=== PATIENT | female | born 1990 | race Caucasian/White ===

== ENCOUNTER 2017-09-23 07:52 | Emergency (ER) | payer OTHER ==
--- NOTE | 2017-09-23 08:00 | EDM.PDOC ---
ED HPI GENERAL MEDICAL PROBLEM - General Chief Complaint: Upper Extremity Injury/Pain Stated Complaint: ARMS ARE BOTH SORE Time Seen by Provider: 09/23/17 07:59 Source of Information: Reports: Patient History Limitations: Reports: No Limitations - History of Present Illness INITIAL COMMENTS - FREE TEXT/NARRATIVE: HISTORY AND PHYSICAL: History of present illness: 27-year-old female presenting emergency department with chief complaint of generalized upper arm and wrist joint pain starting last evening. Patient states that last evening her arms, wrists, and fingers seem to become somewhat painful. Last night she believes that she had a faculty raising her arms above her head. This never happened before . She describes joint pain is achy. She does use her arms extensively at work at [employer]. The entire week she has felt sick in states that she did not take her temperature but she has been feeling warm and cold. She is also had a nonproductive cough and today had some nausea. She also reports a couple days of loose stools. She reports that her mother has a history of arthritis but she does not know if it's ostial or rheumatoid arthritis. She does not see a regular primary care provider here in [place]. She currently denies any chest pain, palpitations, shortness breath , syncopal episodes, focal neurologic deficits. She denies any visual changes and her main symptoms are limited to her upper extremities. Review of systems: As per history of present illness and below otherwise all systems reviewed and negative. Past medical history: As per history of present illness and as reviewed below otherwise noncontributory. Surgical history: As per history of present illness and as reviewed below otherwise noncontributory. Social history: No reported history of drug or alcohol abuse. Family history: As per history of present illness and as reviewed below otherwise noncontributory. Physical exam: HEENT: Atraumatic, normocephalic, pupils reactive, negative for conjunctival pallor or scleral icterus, mucous membranes moist, throat clear, neck supple, nontender, trachea midline. Lungs: Clear to auscultation, breath sounds equal bilaterally, chest nontender. Heart: S1S2, regular, negative for clicks, rubs, or JVD. Abdomen: Soft, nondistended, nontender. Negative for masses or hepatosplenomegaly. Negative for costovertebral tenderness. Pelvis: Stable nontender. Genitourinary: Deferred. Rectal: Deferred. Extremities: Atraumatic, negative for cords or calf pain. Neurovascular unremarkable. Neuro: Awake, alert, oriented. Cranial nerves II through XII unremarkable. Cerebellum unremarkable. Motor and sensory unremarkable throughout. Exam nonfocal. Diagnostics: CBC, CMP, chest x-ray, UA, influenza Therapeutics: Zofran 4 mg by mouth 1 Impression: Viral upper respiratory tract infection Plan: CBC, CMP, chest x-ray, UA, influenza were all unremarkable. Patient's symptoms are most likely related to a viral upper respiratory tract type infection. This was communicated to the patient. She is instructed to use Tylenol for fevers as well as Motrin. I also gave the patient a prescription for meloxicam to use for her joint pain. I think that this may be related to her viral illness however she does have a family history of arthritis and instructed her to follow-up with a primary care provider for further investigation. She should return to emergency department if she has any new or worsening symptoms. Bilateral Arms Pain Score (Numeric/FACES): 4 - Related Data Allergies Allergy/AdvReac Type Severity Reaction Status Date / Time No Known Allergies Allergy Verified 09/23/17 08:17 Home Meds: Home Meds . [No Known Home Meds] 09/23/17 [History] Review of Systems - Review of Systems Review Of Systems: ROS reveals no pertinent complaints other than HPI. ED EXAM, GENERAL - Physical Exam Exam: See Below Course - Vital Signs Last Recorded V/S: Last Vital Signs Temp 97.7 F 09/23/17 08:17 Pulse 94 09/23/17 08:17 Resp 18 09/23/17 08:17 BP 127/77 09/23/17 08:17 Pulse Ox 100 09/23/17 08:17 - Orders/Labs/Meds Orders: Active Orders 24 hr Category Date Time Status Chest 2V [CR] Stat Exams 09/23/17 08:39 Taken CULTURE URINE [RM] Stat Lab 09/23/17 09:11 Ordered HCG QUALITATIVE,URINE [URCHEM] Stat Lab 09/23/17 09:11 Ordered INFLUENZA A+B AG SCREEN [RM] Stat Lab 09/23/17 09:11 Ordered UA W/MICROSCOPIC [URIN] Stat Lab 09/23/17 09:11 Ordered Labs: Laboratory Tests 06/17/18 06/17/18 06/17/18 Range/Units 08:48 08:48 09:11 WBC 5.76 (4.0-11.0) K/uL RBC 4.40 (4.30-5.90) M/uL Hgb 13.2 (12.0-16.0) g/dL Hct 37.7 (36.0-46.0) % MCV 85.7 (80.0-98.0) fL MCH 30.0 (27.0-32.0) pg MCHC 35.0 (31.0-37.0) g/dL RDW Std Deviation 39.3 (28.0-62.0) fl RDW Coeff of Bev 12 (11.0-15.0) % Plt Count 148 L (150-400) K/uL MPV 9.00 (7.40-12.00) fL Neut % (Auto) 61.2 (48.0-80.0) % Lymph % (Auto) 27.4 (16.0-40.0) % [place] % (Auto) 7.6 (0.0-15.0) % Eos % (Auto) 2.1 (0.0-7.0) % Baso % (Auto) 1.7 H (0.0-1.5) % Neut # (Auto) 3.5 (1.4-5.7) K/uL Lymph # (Auto) 1.6 (0.6-2.4) K/uL [place] # (Auto) 0.4 (0.0-0.8) K/uL Eos # (Auto) 0.1 (0.0-0.7) K/uL Baso # (Auto) 0.1 (0.0-0.1) K/uL Nucleated RBC % 0.0 /100WBC Nucleated RBCs # 0 K/uL Sodium 140 (136-145) mmol/L Potassium 3.2 L (3.5-5.1) mmol/L Chloride 103 (98-107) mmol/L Carbon Dioxide 27.1 (21.0-32.0) mmol/L BUN 10 (7.0-18.0) mg/dL Creatinine 0.8 (0.6-1.0) mg/dL Est Cr Clr Drug Dosing 100.63 mL/min Estimated GFR (MDRD) > 60.0 ml/min Glucose 111 H (74-106) mg/dL Calcium 8.8 (8.5-10.1) mg/dL Total Bilirubin 0.5 (0.2-1.0) mg/dL AST 17 (15-37) IU/L ALT 27 (14-63) IU/L Alkaline Phosphatase 73 (46-116) U/L Total Protein 7.5 (6.4-8.2) g/dL Albumin 3.7 (3.4-5.0) g/dL Globulin 3.8 H (2.0-3.5) g/dL Albumin/Globulin Ratio 1.0 L (1.3-2.8) Urine Color Urine Appearance Urine pH (5.0-8.0) Ur Specific [place] (1.001-1.035) Urine Protein (NEGATIVE) mg/dL Urine Glucose (UA) (NEGATIVE) mg/dL Urine Ketones (NEGATIVE) mg/dL Urine Occult Blood (NEGATIVE) Urine Nitrite (NEGATIVE) Urine Bilirubin (NEGATIVE) Urine Ictotest Urine Urobilinogen (<2.0) EU/dL Ur Leukocyte Esterase (NEGATIVE) Urine RBC (0-2/HPF) Urine WBC (0-5/HPF) Ur Epithelial Cells (NONE-FEW) Urine Bacteria (NEGATIVE) Urine Mucus (NONE-MOD) Urine HCG, Qual NEGATIVE (NEGATIVE) 09/23/17 Range/Units 09:11 WBC (4.0-11.0) K/uL RBC (4.30-5.90) M/uL Hgb (12.0-16.0) g/dL Hct (36.0-46.0) % MCV (80.0-98.0) fL MCH (27.0-32.0) pg MCHC (31.0-37.0) g/dL RDW Std Deviation (28.0-62.0) fl RDW Coeff of Bev (11.0-15.0) % Plt Count (150-400) K/uL MPV (7.40-12.00) fL Neut % (Auto) (48.0-80.0) % Lymph % (Auto) (16.0-40.0) % [place] % (Auto) (0.0-15.0) % Eos % (Auto) (0.0-7.0) % Baso % (Auto) (0.0-1.5) % Neut # (Auto) (1.4-5.7) K/uL Lymph # (Auto) (0.6-2.4) K/uL [place] # (Auto) (0.0-0.8) K/uL Eos # (Auto) (0.0-0.7) K/uL Baso # (Auto) (0.0-0.1) K/uL Nucleated RBC % /100WBC Nucleated RBCs # K/uL Sodium (136-145) mmol/L Potassium (3.5-5.1) mmol/L Chloride (98-107) mmol/L Carbon Dioxide (21.0-32.0) mmol/L BUN (7.0-18.0) mg/dL Creatinine (0.6-1.0) mg/dL Est Cr Clr Drug Dosing mL/min Estimated GFR (MDRD) ml/min Glucose (74-106) mg/dL Calcium (8.5-10.1) mg/dL Total Bilirubin (0.2-1.0) mg/dL AST (15-37) IU/L ALT (14-63) IU/L Alkaline Phosphatase (46-116) U/L Total Protein (6.4-8.2) g/dL Albumin (3.4-5.0) g/dL Globulin (2.0-3.5) g/dL Albumin/Globulin Ratio (1.3-2.8) Urine Color YELLOW Urine Appearance CLEAR Urine pH 6.0 (5.0-8.0) Ur Specific [place] 1.025 (1.001-1.035) Urine Protein TRACE (NEGATIVE) mg/dL Urine Glucose (UA) NEGATIVE (NEGATIVE) mg/dL Urine Ketones 15 H (NEGATIVE) mg/dL Urine Occult Blood TRACE-LYSED (NEGATIVE) Urine Nitrite NEGATIVE (NEGATIVE) Urine Bilirubin SMALL H (NEGATIVE) Urine Ictotest NEGATIVE Urine Urobilinogen 1.0 (<2.0) EU/dL Ur Leukocyte Esterase NEGATIVE (NEGATIVE) Urine RBC 0-2 (0-2/HPF) Urine WBC 1-2 (0-5/HPF) Ur Epithelial Cells FEW (NONE-FEW) Urine Bacteria FEW (NEGATIVE) Urine Mucus MODERATE (NONE-MOD) Urine HCG, Qual (NEGATIVE) Meds: Medications Discontinued Medications Generic Name Dose Route Start Last Admin Trade Name Freq PRN Reason Stop Dose Admin Ondansetron HCl 4 mg 09/23/17 09:16 18 09:18 Zofran Odt PO 09/23/17 09:17 4 mg ONETIME ONE Administration Ondansetron HCl Confirm 09/23/17 09:16 09/23/18 09:18 Zofran Odt Administered 09/23/17 09:17 Not Given Dose 4 mg .ROUTE .STK-MED ONE Departure - Departure Time of Disposition: 10:16 Disposition: Home, Self-Care 01 Condition: Good Clinical Impression: Viral upper respiratory tract infection with cough - Discharge Information Referrals: PCP,None [Primary Care Provider] - Forms: ED Department Discharge Additional Instructions: My general discharge The following information is given to patients seen in the emergency department who are being discharged to home. This information is to outline your options for follow-up care. We provide all patients seen in our emergency department with a follow-up referral. The need for follow-up, as well as the timing and circumstances, are variable depending upon the specifics of your emergency department visit. If you don't have a primary care physician on staff, we will provide you with a referral. We always advise you to contact your personal physician following an emergency department visit to inform them of the circumstance of the visit and for follow-up with them and/or the need for any referrals to a consulting specialist. The emergency department will also refer you to a specialist when appropriate. This referral assures that you have the opportunity for follow-up care with a specialist. All of these measure are taken in an effort to provide you with optimal care, which includes your follow-up. Under all circumstances we always encourage you to contact your private physician who remains a resource for coordinating your care. When calling for follow-up care, please make the office aware that this follow-up is from your recent emergency room visit. If for any reason you are refused follow-up, please contact the [facility] Emergency Department at and asked to speak to the emergency department charge nurse. [facility] [address] [place] [address] [id number] [address] [place] [address] Take medications as prescribed Return to emergency department if any new or worsening symptoms Follow-up with a primary care provider. Be sure to call one of the numbers above to schedule appointment. May tell them that you were seen in the emergency department and they requested due to follow-up. - My Orders Last 24 Hours: My Active Orders 09/23/17 08:39 Chest 2V [CR] Stat 09/23/17 09:11 CULTURE URINE [RM] Stat HCG QUALITATIVE,URINE [URCHEM] Stat INFLUENZA A+B AG SCREEN [RM] Stat UA W/MICROSCOPIC [URIN] Stat - Assessment/Plan Last 24 Hours: My Active Orders 09/23/17 08:39 Chest 2V [CR] Stat 09/23/17 09:11 CULTURE URINE [RM] Stat HCG QUALITATIVE,URINE [URCHEM] Stat INFLUENZA A+B AG SCREEN [RM] Stat UA W/MICROSCOPIC [URIN] Stat
[2017-09-23 09:12] LABS: CHLORIDE,CL 103 mmol/L (98-107); SODIUM,NA 140 mmol/L (136-145)
[2017-09-23] MEDS ORDERED: Ondansetron 4 MG Tab.DIS PO ONE (09:16)
[2017-09-23] MEDS ORDERED: Ondansetron 4 MG Tab.DIS ONE (09:16)
--- NOTE | 2017-09-24 15:40 | CR ---
EXAM DATE: 09/23/17 PATIENT'S AGE: 27 Patient: MAYA HERNANDEZ Facility: [place], [place] Site . Site : 1990 Study: XRay Chest [id number]/17/2018 10:02:10 AM Ordering Physician: Brian Black Final Report: INDICATION: Cough. FINDINGS: PA and lateral chest x-rays show a normal cardiac silhouette. The lungs show no focal pulmonary opacities. Sharp pleural margins. No pneumothorax. IMPRESSION: No evidence of acute pulmonary abnormalities. Dictated by Jaden Espitia MD @ 09/23/2017 10:24:13 AM Dictated by: Jaden Espitia MD @ 09/23/2017 10:24:23 (Electronic Signature) Report Signed by Proxy. [facility]ET[facility]isha
== END 2017-09-23 11:00 | disposition home or self-care (01) ==
LOC: MW.ED 07:52
DX: J06.9 Acute upper respiratory infection, unspecified (principal)
CPT/HCPCS: 36415; 71046; 80053; 81001; 81025; 85025; 87086; 87804; 99283; A9270